=== PATIENT | female | born 1995 | race Caucasian/White ===

== ENCOUNTER 2022-05-05 10:27 | Inpatient (IN) | payer BC ==
[~2022-05-05 10:27] MED LIST: Bupivacaine/Epinephrine 0.25% 30 ML VIAL ONE
[2022-05-05 18:21] VITALS: BMI 29.6
[2022-05-05] MEDS ORDERED: Ondansetron PF 4 MG/2 ML Vial IVP PRN (18:46)
[2022-05-05] MEDS ORDERED: hydrALAZINE 20 MG/ML VIAL SLOW IVP PRN (18:46)
[2022-05-05] MEDS ORDERED: Lidocaine 1% (PF) 30 ML VIAL SC PRN (18:46)
[2022-05-05] MEDS ORDERED: Promethazine HCl 25 MG/ML VIAL IM PRN (18:46)
[2022-05-05] MEDS ORDERED: Ibuprofen 800 MG TAB PO PRN (18:46)
[2022-05-05] MEDS ORDERED: Lactated Ringer's 1,000 ML IV SCH (18:46)
[2022-05-05] MEDS ORDERED: NS w/ Oxytocin 30 units 500 ML IV SCH ×2 (18:46)
[2022-05-05] MEDS ORDERED: HYDROcodone/Acetaminophen 5/325 mg Tablet PO PRN ×2 (18:46)
[2022-05-05] MEDS ORDERED: Butorphanol Tartrate 1 MG/ML VIAL SLOW IVP PRN (18:46)
[2022-05-05 18:58] LABS: Hemoglobin 13.8 g/dL (12.0-15.5); Mean Corpuscular HGB CONC 35.7 g/dL (32.0-36.0); Mean Corpuscular Hemoglobin 31.4 pg (27.0-33.0); Mean Corpuscular Volume 88.2 fl (81.6-98.3); Mean Platelet Volume 10.8 fl (7.4-10.4); Platelet Count 259 10x3/uL (150-450); RBC Distribution Width 12.2 % (11.5-14.5); Red Blood Cell (RBC) Count 4.39 10x6/uL (3.90-5.03); White Blood Cell (WBC) Count 12.3 10x3/uL (3.5-10.5)
[2022-05-05 19:25] LABS: HBSAg Index 0.19 S/CO (0-0.99); Hep B Surf Ag Non-Reactive S/CO (NonReactive)
[2022-05-05 19:27] LABS: Syphilis Antibody Nonreactive (Nonreactive); Syphilis Antibody Index 0.06 S/CO (<1.00 Non-Reactive)
[2022-05-05] MEDS: Misoprostol 100 MCG TAB VAG SCH ×2 (19:41→23:48)
[2022-05-05 19:48] LABS: SARS-CoV-2 NAA Rapid Test Not Detected (NotDetected)
[2022-05-06] MEDS ORDERED: Fentanyl 2 mcg/Bup 0.1% Cadd 100 ML ONE (03:38)
[2022-05-06] MEDS ORDERED: Naloxone HCl 0.4 mg/ml Vial IVP PRN ×2 (04:20)
[2022-05-06] MEDS ORDERED: Moisturizing Cream (Eucerin) 113 GM JAR TOP PRN (04:20)
[2022-05-06] MEDS ORDERED: Ondansetron PF 4 MG/2 ML Vial IVP PRN ×2 (04:20→13:24)
[2022-05-06] MEDS ORDERED: Promethazine HCl 25 MG/ML VIAL IM PRN (04:20)
[2022-05-06] MEDS ORDERED: Lactated Ringer's 500 ML IV PRN (04:20)
[2022-05-06] MEDS ORDERED: diphenhydrAMINE 50 MG/ML VIAL IVP PRN (04:20)
[2022-05-06] MEDS ORDERED: ePHEDrine Sulfate 50 MG/10 ML VIAL SLOW IVP PRN (04:20)
[2022-05-06] MEDS ORDERED: Acetaminophen 325 MG TAB PO PRN (04:20)
[2022-05-06] MEDS ORDERED: Communication Order-Pharmacy FS SCH (04:30)
[2022-05-06] MEDS ORDERED: Fentanyl 2 mcg/Bupivacaine 0.1% Cassette 100 ML EPIDURAL SCH (04:30)
[2022-05-06] MEDS ORDERED: HYDROcodone/Acetaminophen 5/325 mg Tablet PO PRN (13:24)
[2022-05-06] MEDS ORDERED: Milk Of Magnesia 30 ML UDCUP PO PRN (13:24)
[2022-05-06] MEDS ORDERED: Benzocaine-Menthol 82.5 ML CAN TOP PRN (13:24)
[2022-05-06] MEDS ORDERED: Boostrix 0.5 ML (Tdap) VIAL (>/=7 yrs of age) IM ONE (13:24)
[2022-05-06] MEDS ORDERED: Bisacodyl 10 MG SUPP PR PRN (13:24)
[2022-05-06] MEDS ORDERED: hydrALAZINE 20 MG/ML VIAL SLOW IVP PRN (13:24)
[2022-05-06] MEDS ORDERED: Preparation H Ointment 28 GM TUBE PR PRN (13:24)
[2022-05-06] MEDS ORDERED: Lanolin Ointment 7 GM TUBE TOP PRN (13:24)
[2022-05-06] MEDS ORDERED: diphenhydrAMINE 25 MG CAP PO PRN (13:24)
[2022-05-06] MEDS: Ibuprofen 800 MG TAB PO SCH ×2 (13:42→21:53)
[2022-05-06 13:50] LABS: HIV (1/2) Antibody/Antigen Non-Reactive (NonReactive); HIV 1/2 INDEX 0.13 S/CO (<1.00)
[2022-05-06] MEDS: Ferrous Sulfate 325 MG TAB PO SCH (15:46)
[2022-05-06] MEDS: HYDROcodone/Acetaminophen 5/325 mg Tablet PO PRN (18:33)
[2022-05-06] MEDS: Docusate 100 MG CAP PO SCH (21:53)
[2022-05-07] MEDS: Ibuprofen 800 MG TAB PO SCH ×3 (06:17→22:43)
[2022-05-07] MEDS: Ferrous Sulfate 325 MG TAB PO SCH ×2 (07:45→17:40)
[2022-05-07] MEDS: Docusate 100 MG CAP PO SCH ×2 (08:28→20:21)
[2022-05-07] MEDS: Prenatal Vitamin 1 TAB PO SCH (08:28)
[2022-05-07] MEDS: HYDROcodone/Acetaminophen 5/325 mg Tablet PO PRN ×2 (08:36→20:26)
[2022-05-07 20:41] VITALS: TEMP 98.4
[2022-05-08] MEDS: Ibuprofen 800 MG TAB PO SCH (05:25)
[2022-05-08] MEDS: Ferrous Sulfate 325 MG TAB PO SCH (07:46)
[2022-05-08 07:58] VITALS: BP 123/71
[2022-05-08] MEDS: HYDROcodone/Acetaminophen 5/325 mg Tablet PO PRN (08:43)
[2022-05-08] MEDS: Docusate 100 MG CAP PO SCH (08:43)
[2022-05-08] MEDS: Prenatal Vitamin 1 TAB PO SCH (08:43)
== END 2022-05-08 12:05 | disposition home or self-care (01) | DRG 807 ==
LOC: CSHLD 18:03 → CSHPP 05-06 13:37
PROVIDERS: ADMIT Obstetrics & Gynecology; ATTEND Obstetrics & Gynecology
PROC: 10907ZC Drainage of Amniotic Fluid, Therapeutic from Products of Conception, Via Natural or Artificial Opening (ICD-10-PCS; 2022-05-05)
PROC: 3E0P7VZ Introduction of Hormone into Female Reproductive, Via Natural or Artificial Opening (ICD-10-PCS; 2022-05-05)
PROC: 10H07YZ Insertion of Other Device into Products of Conception, Via Natural or Artificial Opening (ICD-10-PCS; 2022-05-05)
PROC: 10E0XZZ Delivery of Products of Conception, External Approach (ICD-10-PCS; principal; 2022-05-06)
PROC: 0KQM0ZZ Repair Perineum Muscle, Open Approach (ICD-10-PCS; 2022-05-06)
DX: O76 Abnormality in fetal heart rate and rhythm complicating labor and delivery (principal); Z37.0 Single live birth; Z3A.40 40 weeks gestation of pregnancy; O70.1 Second degree perineal laceration during delivery; Z20.822 Contact with and (suspected) exposure to COVID-19
CPT/HCPCS: 36415; 51702; 85027; 86780; 86850; 86900; 86901; 87340; 87389; J2590; J7120; U0002